=== PATIENT | male | born 1990 | race Hispanic/Latino ===

== ENCOUNTER 2018-08-20 11:47 | Outpatient (CLI) | payer OTHER ==
--- NOTE | 2018-08-20 12:50 | RAD ---
TWO VIEWS ABDOMEN: HISTORY: Bubble on the right side of the umbilicus for a few months. COMPARISON: None. FINDINGS: Two views abdomen demonstrate cholecystectomy clips in the right upper quadrant. Bowel gas pattern i s nonspecific. No suspicious densities in the abdomen or pelvis. No pneumoperitoneum. No osseous abnormalities. There are surgical clips projecting into the left lower quadrant. IMPRESSION: Nonspecific bowel gas pattern. If there is concern for possible umbilical/paraumbilical hernia, cons ider ultrasound. POS: [facility]
== END 2018-08-20 11:48 | disposition home or self-care (01) ==
LOC: SCSRAD 11:47
PROVIDERS: ATTEND Family Medicine
DX: R10.84 Generalized abdominal pain (principal)
CPT/HCPCS: 74019